=== PATIENT | female | born 1975 | race Caucasian/White ===

== ENCOUNTER 2018-04-22 09:38 | Outpatient (CLI) | payer OTHER, SELFPAY ==
[2018-04-22 12:56] LABS: Anion Gap 8.5 mmol/L (3-11); BUN 12 mg/dL (7-18); CO2 26.5 mmol/L (21.0-32.0); CREATININE 0.65 mg/dL (0.55-1.02); Calcium 8.7 mg/dL (8.5-10.1); Chloride 104 mmol/L (98-107); Glucose 85 mg/dL (70-100); Potassium 4.6 mmol/L (3.5-5.1); Sodium 139 mmol/L (136-145)
[2018-04-22 13:05] LABS: HCT 34.3 % (36.0-46.0); HGB 10.3 g/dL (12.0-15.5); Mean Corpuscular Hemoglobin 22.9 pg (27.0-33.0); Mean Corpuscular Volume 76.2 fL (80-95); Mean Platelet Volume 10.9 fL (8.0-11.0); Platelet Count 294 x1000/uL (130-400); RBC Distribution Width 17.6 % (11.7-14.6); White Blood Cell Count 3.91 k/cumm (4.4-10.8)
== END 2018-04-22 09:58 ==
PROVIDERS: PCP Family Medicine; Visit Provider Family Medicine
DX: D25.9 Leiomyoma of uterus, unspecified (principal); N92.0 Excessive and frequent menstruation with regular cycle
CPT/HCPCS: 36415; 80048; 85027

== ENCOUNTER 2019-01-23 13:02 | Outpatient (CLI) | payer OTHER, SELFPAY ==
[2019-01-23 14:58] LABS: HCT 36.4 % (36.0-46.0); HGB 11.5 g/dL (12.0-15.5); Mean Corp. HGB Concentration 31.6 g/dL (32.0-36.0); Mean Corpuscular Hemoglobin 24.9 pg (27.0-33.0); Mean Platelet Volume 10.5 fL (8.0-11.0); Platelet Count 230 x1000/uL (130-400); RBC 4.61 m/cumm (4.00-5.20); RBC Distribution Width 16.7 % (11.7-14.6); White Blood Cell Count 4.48 k/cumm (4.4-10.8)
[2019-01-23 16:01] LABS: ALT 19 U/L (12-78); AST 14 U/L (15-37); Albumin 3.7 g/dL (3.4-5.0); Alkaline Phosphatase 43 U/L (46-116); Anion Gap 9.1 mmol/L (3-11); BUN 13 mg/dL (7-18); Bilirubin, Total 0.3 mg/dL (0.2-1.0); CO2 25.9 mmol/L (21.0-32.0); CREATININE 0.64 mg/dL (0.55-1.02); Calcium 8.8 mg/dL (8.5-10.1); Chloride 106 mmol/L (98-107); Glucose 121 mg/dL (70-100); Potassium 3.7 mmol/L (3.5-5.1); Sodium 141 mmol/L (136-145); Total Protein 6.9 g/dL (6.4-8.2)
== END 2019-01-23 13:22 ==
PROVIDERS: PCP Family Medicine
DX: N92.0 Excessive and frequent menstruation with regular cycle (principal); D50.9 Iron deficiency anemia, unspecified
CPT/HCPCS: 36415; 80053; 85027

== ENCOUNTER 2019-01-29 07:47 | Outpatient (CLI) | payer OTHER, SELFPAY ==
--- NOTE | 2019-01-29 07:49 | DI.US_ITS ---
SYMPTOMS/DIAGNOSIS: MENORRHAGIA, FIBROID ASSESSMENT, N92.0, Z86.018 PELVIC ULTRASOUND: A transabdominal and transvaginal examination was performed. The uterus measures 16.5 x 9.8 x 12.3 cm and contains a large fibroid measuring 9.1 x 8 x 11.6 cm obscuring the endometrial stripe. The right ovary measures 3.1 x 1.5 x 1.1 cm. The left ovary 3.4 x 1.8 x 1.8 cm. SUMMARY: A large uterine fibroid is demonstrated measuring up to 9.1 x 8 x 11.6 cm and obscuring the endometrial stripe.
== END 2019-01-29 08:07 ==
DX: N92.0 Excessive and frequent menstruation with regular cycle (principal); Z86.018 Personal history of other benign neoplasm; D25.9 Leiomyoma of uterus, unspecified
CPT/HCPCS: 76830; 76856

== ENCOUNTER → 2023-12-10 03:27 | Outpatient (CLI) | payer OTHER, SELFPAY ==
--- NOTE | 2023-12-10 06:30 | DI.MAMMO_ITS ---
Exam(s) MAMMO SCREENING EXAM: MAMMO SCREENING CLINICAL HISTORY: screening,z12.39. TECHNIQUE: Bilateral full field digital CC and MLO mammographic images were obtained with 3D tomosyn thesis and utilizing computer aided detection (CAD). COMPARISON: None. FINDINGS: Fibroglandular tissue pattern is moderately dense, this somewhat decreasing the sensitivity mammogram for finding hidden underlying lesions. Benign-appearing lymph nodes noted in the upper quadrant of the left breast. In the right breast there is subtle suggestion of a possible nodular density in the upper outer quadr ant located 10 cm from the nipple, measuring approximately 5 x 4 mm. Spot compression views recommen ded. There are no malignant-appearing microcalcification groups in this region or elsewhere in either [address]. There is no significant architectural distortion nor skin thickening-retraction. IMPRESSION: 1. No radiographic evidence of malignancy in left breast. 2. Asymmetric density-possible nodule in the upper-outer quadrant of the right breast. Spot compress ion right breast MLO view and ultrasound recommended. BI-RADS Category 0 - Assessment Incomplete: Need additional imaging evaluation Breast Density - Category C - Heterogeneously dense Breast density Category C or D implies that the patient has dense breast tissue. Dense breast tissue can make it harder to find cancer on a mammogram. Dense breast tissue is also associated with an incr eased risk of breast cancer. This information about the result of the mammogram report was provided to the patient to raise their awareness. Use this report when you speak with the patient about their risks for breast cancer, which includes their family history. At that time, you may recommend additional screening tests (Ultrasoun d or MRI) as these tests may add significant information. A negative radiographic report should not delay biopsy if a dominant or clinically suspicious mass is present. Up to ten percent of cancers are not identified on mammography. A negative report may reinforce clinical impression. Adenosis and dense breasts may obscure an underlying neoplasm. False positive reports average 6 to 10%. Patient will receive a letter notifying them of these results.
== END ==
PROVIDERS: PCP Nurse Practitioner Family; Visit Provider Nurse Practitioner Family
DX: Z12.31 Encounter for screening mammogram for malignant neoplasm of breast (principal); R92.8 Other abnormal and inconclusive findings on diagnostic imaging of breast
CPT/HCPCS: 77063; 77067

== ENCOUNTER → 2023-12-14 00:37 | Outpatient (CLI) | payer OTHER, SELFPAY ==
--- NOTE | 2023-12-14 | DI.MAMMO_ITS ---
Exam(s) MG MAMMO SCREEN CALL BACK UNI US BREAST RT COMPLETE EXAM: MG MAMMO SCREEN CALL BACK UNI-RIGHT AND COMPLETE RIGHT BREAST ULTRASOUND CLINICAL HISTORY: F/U MAMMO, RT ASYMMETRIC DENSITY,? NODULE,r92.8. TECHNIQUE: Unilateral RIGHT BREAST spot mammographic images obtained with 3D tomosynthesisand utiliz ing computer aided detection (CAD). . Complete RIGHT breast Ultrasound was also performed, including all 4 quadrants, the retroareolar mela on, and the ipsilateral axilla. COMPARISON: Prior mammograms were reviewed. This additional imaging was performed due to findings described on the recent baseline screening mammogram of 12/10/2023. FINDINGS: DIAGNOSTIC MAMMOGRAM: Additional mammographic views performed todayrender this area less concerning.Asymmetric density desc ribed has the appearance of a benign intramammary lymph node on additional view COMPLETE RIGHT BREAST ULTRASOUND: Ultrasound performed today reveals no evidence of solid or significant cystic lesions all 4 quadrants . Scanning of the ipsilateral axilla reveals no significant adenopathy. IMPRESSION: 1. No radiographic evidence of malignancy in the right breast 2. Negative complete right breast ultrasound Appropriate follow-up is to keep this patient on a yearly mammogram schedule, with earlier imaging i f a self detected breast change is noted.. The patient was informed of these findings and recommendations by myself prior to leaving the departm ent today. BI-RADS Category 2 - Benign Findings Breast Density - Category B - Scattered areas of fibroglandular density Breast density Category C or D implies that the patient has dense breast tissue. Dense breast tissue can make it harder to find cancer on a mammogram. Dense breast tissue is also associated with an incr eased risk of breast cancer. This information about the result of the mammogram report was provided to the patient to raise their awareness. Use this report when you speak with the patient about their risks for breast cancer, which includes their family history. At that time, you may recommend additional screening tests (Ultrasoun d or MRI) as these tests may add significant information. A negative radiographic report should not delay biopsy if a dominant or clinically suspicious mass is present. Up to ten percent of cancers are not identified on mammography. A negative report may reinforce clinical impression. Adenosis and dense breasts may obscure an underlying neoplasm. False positive reports average 6 to 10%. Patient will receive a letter notifying them of these results.
== END ==
PROVIDERS: PCP Nurse Practitioner Family; Visit Provider Nurse Practitioner Family
DX: R92.8 Other abnormal and inconclusive findings on diagnostic imaging of breast (principal)
CPT/HCPCS: 76642; 77063; 77067